=== PATIENT | female | born 1985 | race Hispanic/Latino ===

== ENCOUNTER 2016-12-25 21:24 | Emergency (ER) | payer SELFPAY ==
[~2016-12-25] VITALS: Ht 167.6 cm; Wt 95.0 kg
--- NOTE | 2016-12-25 22:32 | NUR ---
BREATHING TREATMENT GIVEN. IT WAS EXPLAINT TO HER HOW TO BREATH DEEPLY FOR GOOD DEPOSITION TO THE LUNGS.
[2016-12-25 23:30] VITALS: BP 112/56
== END 2016-12-25 23:35 | disposition home or self-care (01) | DRG 918 ==
LOC: ED 21:24
DX: T59.811A Toxic effect of smoke, accidental (unintentional), initial encounter (principal); J70.5 Respiratory conditions due to smoke inhalation; Y93.G3 Activity, cooking and baking; Y92.000 Kitchen of unspecified non-institutional (private) residence as the place of occurrence of the external cause; R06.02 Shortness of breath; R05 Cough; R07.9 Chest pain, unspecified

== ENCOUNTER 2019-06-06 17:14 | Emergency (ER) | payer OTHER ==
[~2019-06-06] VITALS: Ht 167.6 cm; Wt 98.2 kg
[~2019-06-06 17:14] MED LIST: CIPROFLOXACN500 MG PO; FERR SULFATE325 MG PO
[2019-06-06 18:35] VITALS: BP 138/76
== END 2019-06-06 18:35 | disposition home or self-care (01) ==
LOC: ED 17:14
DX: S60.222A Contusion of left hand, initial encounter (principal); W20.8XXA Other cause of strike by thrown, projected or falling object, initial encounter; Y93.89 Activity, other specified; Y92.009 Unspecified place in unspecified non-institutional (private) residence as the place of occurrence of the external cause

== ENCOUNTER 2019-08-13 08:09 | Emergency (ER) | payer SELFPAY ==
[~2019-08-13] VITALS: Ht 167.6 cm; Wt 96.0 kg
[2019-08-13] MEDS ORDERED: BACTRIM DS1 TAB PO (08:40)
[2019-08-13 09:24] VITALS: BP 139/81
== END 2019-08-13 09:24 | disposition home or self-care (01) | DRG 125 ==
LOC: ED 08:09
DX: H00.011 Hordeolum externum right upper eyelid (principal)

== ENCOUNTER 2019-08-17 17:46 | Emergency (ER) | payer MEDICAID ==
[~2019-08-17] VITALS: Ht 167.6 cm; Wt 96.0 kg
[~2019-08-17 17:46] MED LIST changes: +BACTRIM DS1 TAB PO
[2019-08-17 18:57] LABS: HEMOGLOBIN 10.9 g/dl (12.0-16.0); IMMATURE GRANULOCYTES 0.2 % (0.0-5.0); MEAN CORPUSCULAR HGB 25.1 pG CALC (26.0-32.0); MEAN CORPUSCULAR HGB CONC 31.6 g/L CALC (32.0-36.0); NEUT# 4.46 thou/uL (2.00-7.15); RED BLOOD COUNT 4.34 mill/uL (4.20-5.60); RED CELL DISTRI WIDTH 14.6 % (11.5-15.5)
[2019-08-17 18:58] LABS: HEMATOCRIT 34.5 % (37.0-47.0); MEAN CELL VOLUME 79.5 fL CALC (80.0-100.0)
[2019-08-17 20:30] VITALS: BP 121/77
== END 2019-08-17 20:38 | disposition home or self-care (01) ==
LOC: ED 17:46
PROVIDERS: Family Medicine
DX: B34.9 Viral infection, unspecified (principal)

== ENCOUNTER 2020-10-04 16:38 | Observation (INO) | payer OTHER ==
[~2020-10-04] VITALS: Ht 167.6 cm; Wt 90.5 kg
--- NOTE | 2020-10-04 17:57 | NUR ---
PATIENT TO ROOM WITH A STEADY GAIT.
[2020-10-04 18:17] LABS: HEMATOCRIT 34.5 % (37.0-47.0); HEMOGLOBIN 10.5 g/dl (12.0-16.0); IMMATURE GRANULOCYTES 0.2 % (0.0-5.0); MEAN CELL VOLUME 77.2 fL CALC (80.0-100.0); MEAN CORPUSCULAR HGB 23.5 pG CALC (26.0-32.0); MEAN CORPUSCULAR HGB CONC 30.4 g/dL CAL (32.0-36.0); NEUT# 5.93 thou/uL (2.00-7.15); RED BLOOD COUNT 4.47 mill/uL (4.20-5.60); RED CELL DISTRI WIDTH 15.4 % (11.5-15.5)
[2020-10-04 18:25] LABS: URINE BILIRUBIN - DIPSTICK NEGATIVE (NEGATIVE); URINE BLOOD DIPSTICK NEGATIVE (NEGATIVE); URINE COLOR YELLOW; URINE GLUCOSE - DIPSTICK NEGATIVE (NEGATIVE); URINE KETONE NEGATIVE (NEGATIVE); URINE LEUK ESTERASE TRACE (NEGATIVE); URINE NITRITE - DIPSTICK NEGATIVE (Negative); URINE PROTEIN - DIPSTICK NEGATIVE (NEG-TRACE); URINE SPECIFIC GRAVITY 1.015
[2020-10-04 18:40] LABS: ALBUMIN 4.5 g/dL (3.2-5.0); ALKALINE PHOSPHATASE 95 u/l (38-126); ANION GAP 14 (6-22 (CALC)); BILIRUBIN, TOTAL 0.8 mg/dL (0.0-1.4); BUN 10 mg/dL (7-17); BUN/CREATININE RATIO 21 (12-20 (CALC)); CARBON DIOXIDE 26 mmol/l (22-30); CHLORIDE 100 mmol/l (95-108); CREATININE 0.5 mg/dL (0.5-1.0); GFR > 60 ML/MIN (>=60 (CALC)); GFR FOR AFR.AMER. > 60 ML/MIN (>=60 (CALC)); POTASSIUM 3.6 mmol/l (3.5-5.1); SGOT/AST 44 u/l (14-36); SODIUM 136 mmol/l (137-146); TOTAL PROTEIN 7.5 g/dL (6.3-8.2)
--- NOTE | 2020-10-04 19:17 | NUR ---
A/O X3 NO ABD PAIN NO NAUSEA SR NO ECTOPY
[2020-10-04 19:47] LABS: AMYLASE 60 u/l (30-110); LIPASE 30 u/l (23-300)
--- NOTE | 2020-10-04 20:37 | NUR ---
W/P/D SKIN SR NO ECTOPY NO NAUSEA NO PAIN OF ANY SOURCE.
--- NOTE | 2020-10-04 21:02 | NUR ---
PT UP TO RR TO VOID NO PAIN NO N/V
--- NOTE | 2020-10-04 22:36 | NUR ---
W/P/D SKIN NO N/V NO C/O ABD PAIN
--- NOTE | 2020-10-04 23:40 | NUR ---
PT REFUSED ADDITIONAL PAIN MED.W/P/D SKIN NO N/V
--- NOTE | 2020-10-05 00:15 | NUR ---
W/D SKIN SR NO ECTOPY DENIES PAIN NO N/V
--- NOTE | 2020-10-05 01:09 | NUR ---
PT TRANSFERRED TO HOSP BED WARM BLANKET PROVIDED .
--- NOTE | 2020-10-05 02:46 | NUR ---
SR NO ECTOPY W/P/D SKIN NO N/V OR ABD PAIN
--- NOTE | 2020-10-05 05:14 | NUR ---
AWAKENED FROM SLEEP W/P/D SKIN DENIES PAIN NO N/V
[2020-10-05 05:40] LABS: HEMATOCRIT 30.4 % (37.0-47.0); HEMOGLOBIN 9.4 g/dl (12.0-16.0); IMMATURE GRANULOCYTES 0.2 % (0.0-5.0); MEAN CELL VOLUME 76.8 fL CALC (80.0-100.0); MEAN CORPUSCULAR HGB 23.7 pG CALC (26.0-32.0); MEAN CORPUSCULAR HGB CONC 30.9 g/dL CAL (32.0-36.0); NEUT# 4.18 thou/uL (2.00-7.15); RED BLOOD COUNT 3.96 mill/uL (4.20-5.60); RED CELL DISTRI WIDTH 15.4 % (11.5-15.5)
[2020-10-05 05:55] LABS: ALBUMIN 3.6 g/dL (3.2-5.0); ALKALINE PHOSPHATASE 84 u/l (38-126); ANION GAP 8 (6-22 (CALC)); BILIRUBIN, TOTAL 0.8 mg/dL (0.0-1.4); BUN 7 mg/dL (7-17); BUN/CREATININE RATIO 15 (12-20 (CALC)); CARBON DIOXIDE 28 mmol/l (22-30); CHLORIDE 105 mmol/l (95-108); CREATININE 0.5 mg/dL (0.5-1.0); GFR > 60 ML/MIN (>=60 (CALC)); GFR FOR AFR.AMER. > 60 ML/MIN (>=60 (CALC)); POTASSIUM 3.3 mmol/l (3.5-5.1); SGOT/AST 34 u/l (14-36); SODIUM 137 mmol/l (137-146); TOTAL PROTEIN 6.2 g/dL (6.3-8.2)
--- NOTE | 2020-10-05 06:20 | NUR ---
MEDICATED FOR MOD LO ABD PAIN NO N
--- NOTE | 2020-10-05 06:52 | NUR ---
PT REPORT TO NURSE CECIL
--- NOTE | 2020-10-05 08:00 | NUR ---
CHARTING WILL CONTINUE ON STANDARD INPATIENT FORMAT.
--- NOTE | 2020-10-05 09:00 | NUR ---
PT IS ALERT AND ORIENTED X 3. LUNGS CLEAR, RA. PT WITH ABDOMINAL TENDERNESS TO LLQ. PT STATES HEADACHE FROM NOT EATING THIS MORNING. NO ACUTE DISTRESS, NO SIGNIFICANT PAIN. NORMAL BM YESTERDAY.
--- NOTE | 2020-10-05 09:32 | NUR ---
CHARTING WILL CONTINUE ON INPATIENT FORMAT.
[2020-10-05] MEDS ORDERED: BACTRIM DS1 TAB PO (10:30)
[2020-10-05 10:40] VITALS: BP 105/55
[2020-10-05 10:41] VITALS: BP 105/51; BP 114/58
[2020-10-05 11:20] VITALS: BP 105/51
--- NOTE | 2020-10-05 11:20 | NUR ---
PT VERBALIZES UNDERSTANDING OF DC INSTRUCTIONS, AMBULATES TO LOBBY. PT LEAVES [facility] IN STABLE CONDITION. CRACKERS AND GATORADE PROVIDED PRIOR TO DISCHARGE.
== END 2020-10-05 11:20 | disposition home or self-care (01) | DRG 387 ==
LOC: ED 16:38 → ED-I 23:14 → ED 23:43 → ED-I 23:44
PROVIDERS: Emergency Medicine; Family Medicine; ADMIT Internal Medicine; ATTEND Internal Medicine
DX: K50.10 Crohn's disease of large intestine without complications (principal); D25.9 Leiomyoma of uterus, unspecified; Z20.822 Contact with and (suspected) exposure to COVID-19

== ENCOUNTER 2021-09-28 13:51 | Emergency (ER) | payer OTHER ==
[~2021-09-28] VITALS: Ht 167.6 cm; Wt 95.0 kg
[2021-09-28] MEDS ORDERED: ZPAK PO (14:36)
[2021-09-28 15:05] VITALS: BP 132/70
== END 2021-09-28 15:05 | disposition home or self-care (01) ==
LOC: ED 13:51
DX: J06.9 Acute upper respiratory infection, unspecified (principal); Z86.16 Personal history of COVID-19

== ENCOUNTER 2022-01-10 20:53 | Emergency (ER) | payer OTHER ==
[~2022-01-10] VITALS: Ht 167.6 cm; Wt 100.0 kg
[~2022-01-10 20:53] MED LIST changes: +ZPAK PO
[2022-01-10 21:03] VITALS: BP 119/67
[2022-01-10 21:15] VITALS: BP 108/63
[2022-01-10 21:30] VITALS: BP 102/61
[2022-01-10] MEDS ORDERED: NAPROXEN500 MG PO (21:40)
[2022-01-10 21:45] VITALS: BP 98/49
[2022-01-10 21:54] VITALS: BP 98/49
== END 2022-01-10 22:00 | disposition home or self-care (01) ==
LOC: ED 20:53
DX: S90.31XA Contusion of right foot, initial encounter (principal); W22.09XA Striking against other stationary object, initial encounter; Y93.66 Activity, soccer; Y92.322 Soccer field as the place of occurrence of the external cause

== ENCOUNTER 2022-05-26 17:12 | Emergency (ER) | payer OTHER ==
[~2022-05-26] VITALS: Ht 167.6 cm; Wt 94.0 kg
[~2022-05-26 17:12] MED LIST changes: +NAPROXEN500 MG PO
[2022-05-26] MEDS ORDERED: KEFLEX500 MG PO (18:52)
[2022-05-26 18:53] VITALS: BP 119/62
== END 2022-05-26 19:05 | disposition home or self-care (01) ==
LOC: ED 17:12
DX: S91.331A Puncture wound without foreign body, right foot, initial encounter (principal); W25.XXXA Contact with sharp glass, initial encounter; Y93.E1 Activity, personal bathing and showering; Y92.002 Bathroom of unspecified non-institutional (private) residence as the place of occurrence of the external cause

== ENCOUNTER 2023-10-28 21:10 | Emergency (ER) | payer SELFPAY ==
[~2023-10-28] VITALS: Ht 167.6 cm; Wt 95.0 kg
[~2023-10-28 21:10] MED LIST changes: +KEFLEX500 MG PO
[2023-10-28 22:13] LABS: URINE BILIRUBIN - DIPSTICK Negative (NEGATIVE); URINE BLOOD DIPSTICK Moderate (NEGATIVE); URINE GLUCOSE - DIPSTICK Negative (NEGATIVE); URINE KETONE Negative (NEGATIVE); URINE LEUK ESTERASE Negative (NEGATIVE); URINE NITRITE - DIPSTICK Negative (Negative); URINE PROTEIN - DIPSTICK Negative (NEG-TRACE); URINE SPECIFIC GRAVITY 1.025
[2023-10-28 22:14] LABS: URINE COLOR Yellow
[2023-10-28] MEDS ORDERED: KETOROLAC TROMETHAMINE 30 MG/ML SDV IM ONE (22:15)
[2023-10-28] MEDS ORDERED: ACETAMINOPHEN 500 MG TAB PO ONE (22:15)
[2023-10-28] MEDS ORDERED: traMADol HCL 50 MG/TAB PO ONE (22:15)
[2023-10-28 22:22] LABS: URINE SQUAMOUS EPITHELIAL CELL FEW EPI/hpf (0-FEW)
[2023-10-28] MEDS ORDERED: VOLTAREN - GENE75 MG PO (23:13)
[2023-10-28 23:43] VITALS: BP 131/89
== END 2023-10-28 23:43 | disposition home or self-care (01) | DRG 563 ==
LOC: ED 21:10
PROVIDERS: Family Medicine
DX: S39.012A Strain of muscle, fascia and tendon of lower back, initial encounter (principal); X58.XXXA Exposure to other specified factors, initial encounter

== ENCOUNTER 2024-09-07 19:40 | Emergency (ER) | payer MEDICAID ==
[~2024-09-07] VITALS: Ht 167.6 cm; Wt 80.7 kg
[~2024-09-07 19:40] MED LIST changes: +VOLTAREN - GENE75 MG PO
[2024-09-07] MEDS ORDERED: MECLIZINE HCL 25 MG/TAB PO ONE (21:55)
[2024-09-08] MEDS ORDERED: MECLIZINE25 M1 PO (00:14)
[2024-09-08 01:10] VITALS: BP 120/72
== END 2024-09-08 01:10 | disposition home or self-care (01) ==
LOC: ED 19:40
DX: R42 Dizziness and giddiness (principal)